=== PATIENT | female | born 1990 | race Caucasian/White ===

== ENCOUNTER 2019-06-10 14:30 | Outpatient (CLI) | payer OTHER ==
--- NOTE | 2019-06-12 11:11 | Ultrasound Report ---
Reason: DYSMENORRHEA Procedure Date: 06/10/2019 Accession Number: [id number] / [id number] Procedure: US - Pelvic w/Transvaginal CPT Code: FULL RESULT: EXAM: PELVIC ULTRASOUND EXAM DATE: 06/10/2019 03:55 PM. CLINICAL HISTORY: DYSMENORRHEA. LMP 06/03/2019 COMPARISON: None. TECHNIQUE: Realtime transabdominal pelvic scan performed to identify the uterus and adnexa and as an overview of other pelvic structures, followed by transvaginal scan to provide greater detail of the uterus and adnexa, with static image documentation. FINDINGS: Uterus: 6.6 x 3.7 x 4.4 cm, volume 56 cc. Retroverted position. Normal overall size and echotexture. Masses: None. Endometrium: 5 mm. Normal. Cervix: Unremarkable. Right Ovary: 3.4 x 2 x 2 cm, volume 7.1 cc. Normal echotexture and blood flow. Left Ovary: 3.7 x 1.7 x 2 cm, volume 6.3 cc. Normal echotexture and blood flow. 2.1 x 2.1 x 3.4 cm left adnexal cystic structure with some septations, question ovarian or paraovarian cyst versus dilated fallopian tube. Free Fluid: None. Other: None. IMPRESSION: Left adnexal cystic structure 2.1 x 2.1 x 3.4 cm, consider ovarian/paraovarian cyst or focally dilated fallopian tube. Otherwise negative pelvic ultrasound. [facility]
== END 2019-06-10 14:31 | disposition home or self-care (01) ==
LOC: DI 14:30
PROVIDERS: ATTEND Obstetrics & Gynecology
DX: N94.9 Unspecified condition associated with female genital organs and menstrual cycle (principal)
CPT/HCPCS: 76830; 76856

== ENCOUNTER 2019-06-13 08:00 | Outpatient (CLI) | payer OTHER ==
[2019-06-13 12:47] LABS: THYROID STIMULATING HORMONE 1.54 uIU/mL (0.34-5.60)
[2019-06-13 12:53] LABS: PROLACTIN 5.7 ng/mL
[2019-06-13 13:15] LABS: FOLLICLE STIMULATING HORMONE 10.93 mIU/mL
[2019-06-13 13:16] LABS: LUTEINIZING HORMONE 28.26 mIU/mL
[2019-06-14 05:58] LABS: ESTRADIOL 40 pg/mL
[2019-06-14 07:01] LABS: PROGESTERONE <0.5 ng/mL
[2019-06-15 20:12] LABS: DHEA SULFATE 172 mcg/dL (18-391)
== END 2019-06-13 23:59 | disposition home or self-care (01) ==
LOC: LAB.N 08:00
PROVIDERS: ATTEND Obstetrics & Gynecology
DX: N92.1 Excessive and frequent menstruation with irregular cycle (principal)
CPT/HCPCS: 36415; 81599; 82627; 82670; 83001; 83002; 83498; 84144; 84146; 84270; 84402; 84403; 84443

== ENCOUNTER 2019-12-14 13:46 | Outpatient (CLI) | payer OTHER | END 2019-12-14 13:47 | disposition home or self-care (01) | LOC: COV 13:46 | PROVIDERS: ATTEND Family Medicine | DX: R05 Cough (principal); R50.9 Fever, unspecified | CPT/HCPCS: 81599 ==

== ENCOUNTER 2020-08-06 16:30 | Outpatient (CLI) | payer OTHER | END 2020-08-06 16:31 | disposition home or self-care (01) | LOC: COV 16:30 | PROVIDERS: ATTEND Family Medicine | DX: R50.9 Fever, unspecified (principal); R05 Cough; R06.02 Shortness of breath; M79.10 Myalgia, unspecified site; R53.83 Other fatigue; J02.9 Acute pharyngitis, unspecified; R09.81 Nasal congestion; R11.2 Nausea with vomiting, unspecified; Z20.828 Contact with and (suspected) exposure to other viral communicable diseases ==

== ENCOUNTER 2020-12-18 13:13 | Outpatient (CLI) | payer OTHER | END 2020-12-18 13:14 | disposition home or self-care (01) | LOC: COV 13:13 | PROVIDERS: ATTEND Family Medicine | DX: R05 Cough (principal); R53.83 Other fatigue; R68.83 Chills (without fever); R07.0 Pain in throat; Z20.822 Contact with and (suspected) exposure to COVID-19 ==

== ENCOUNTER 2024-06-06 09:52 | Outpatient (CLI) | payer OTHER | END 2024-06-06 09:53 | disposition home or self-care (01) | LOC: CAM 09:52 | PROVIDERS: ATTEND Registered Nurse | DX: G89.4 Chronic pain syndrome (principal); G43.809 Other migraine, not intractable, without status migrainosus; M54.6 Pain in thoracic spine; M54.50 Low back pain, unspecified | CPT/HCPCS: 97810; 97811 ==